=== PATIENT | female | born 1995 | race Asian ===

== ENCOUNTER 2020-02-09 09:09 | Emergency (ER) | payer MEDICAID, OTHER ==
[~2020-02-09] VITALS: Ht 152.4 cm; Wt 45.5 kg
[2020-02-09] MEDS ORDERED: ACETAMINOPHEN 500 MG TABLET PO ONE (10:30)
[2020-02-09 11:40] VITALS: BP 128/71
[2020-02-09 11:49] LABS: COVID AG,FIA SOURCE NASOPHARYNGEAL
== END 2020-02-09 12:10 | disposition home or self-care (01) ==
LOC: EDUNIT# 09:09 → EMS 09:13
DX: U07.1 COVID-19 (principal)
CPT/HCPCS: 71045; 87426; 99284; C9803; U0003

== ENCOUNTER 2020-02-17 12:15 | Emergency (ER) | payer MEDICAID ==
[~2020-02-17] VITALS: Ht 160 cm; Wt 52.3 kg
[2020-02-17] MEDS ORDERED: SODIUM CHLORIDE 0.9% 1,000 ML ONE (13:50)
[2020-02-17] MEDS: SODIUM CHLORIDE 0.9% 1,000 ML IV ONE (13:51)
[2020-02-17] MEDS: KETOROLAC TROMETHAMINE 30 MG/ML VIAL IVP ONE (13:52)
[2020-02-17 14:11] LABS: APPEARANCE,URINE CLEAR (CLEAR); BILIRUBIN,URINE NEGATIVE (NEGATIVE); GLUCOSE, URINE (UA) NEGATIVE (NEGATIVE); KETONES,URINE 40 mg/dL (NEGATIVE); LEUKOCYTE ESTERASE ,URINE NEGATIVE (NEGATIVE); NITRATE,URINE NEGATIVE (NEGATIVE); OCCULT BLOOD,URINE MODERATE (NEGATIVE); PROTEIN,URINE TRACE (NEGATIVE)
[2020-02-17 14:25] LABS: BASOPHILS % (AUTO) 0.2 % (0.0-2.0); EOSINOPHILS % (AUTO) 0.1 % (1.0-6.0); HEMATOCRIT 37.3 % (36-46); HEMOGLOBIN 12.9 g/dL (12.0-16.0); LYMPHOCYTES # (AUTO) 0.9 K/uL (1.0-4.8); LYMPHOCYTES % (AUTO) 10.6 % (22.0-44.0); MEAN CORPUSCULAR HEMOGLOBIN 29.2 pg (26.0-34.0); MEAN CORPUSCULAR HGB CONC 34.7 G/dL (31.0-37.0); MEAN CORPUSCULAR VOLUME 84 fL (80-100); MONOCYTES # (AUTO) 0.7 K/uL (0.1-1.0); MONOCYTES % (AUTO) 7.7 % (2.0-9.0); NEUTROPHILS % (AUTO) 81.4 % (40.0-70.0); PLATELET COUNT (AUTO) 253 K/uL (150-450); RED BLOOD CELL COUNT(AUTO) 4.43 MIL/uL (4.00-5.20); RED CELL DISTRIBUTION WIDTH 12.6 % (11.5-14.5)
[2020-02-17 14:26] LABS: BACTERIA,URINE None Seen /HPF (None Seen); SQUAMOUS EPITHELIAL CELL,UR Moderate /LPF (None Seen); WBC,URINE None Seen /HPF (0-5)
[2020-02-17 14:27] LABS: ANION GAP 11 mmol/L (8-16); CALCIUM, TOTAL 8.9 mg/dL (8.8-10.5); CARBON DIOXIDE 25 mmol/L (22-29); CHLORIDE 101 mmol/L (98-107); GLOMERULAR FILTR. RATE CALC > 60 mL/min (>60); GLUCOSE,RANDOM 91 mg/dL (70-110); POTASSIUM 3.5 mmol/L (3.5-5.1); SODIUM SERUM 137 mmol/L (136-145); UREA NITROGEN, BLOOD 8 mg/dL (7-18)
[2020-02-17 14:33] LABS: ALANINE AMINOTRANSFERASE 16 U/L (12-78); ALBUMIN 4.3 g/dL (3.4-5.0); ALKALINE PHOSPHATASE 63 U/L (46-116); ASPARTATE AMINOTRANSFERASE 15 U/L (15-37); BILIRUBIN,TOTAL 0.9 mg/dL (0.1-1.0); TOTAL PROTEIN, SERUM 8.8 g/dL (6.4-8.2)
[2020-02-17 17:06] VITALS: BP 125/72
== END 2020-02-17 17:08 | disposition home or self-care (01) ==
LOC: EMS 12:16
DX: R10.31 Right lower quadrant pain (principal); R30.0 Dysuria; R31.9 Hematuria, unspecified
CPT/HCPCS: 36415; 74176; 80053; 81001; 81025; 85025; 96361; 96374; 99284; J1885; J7030

== ENCOUNTER 2020-03-19 17:14 | Emergency (ER) | payer MEDICAID ==
[~2020-03-19] VITALS: Ht 162.6 cm; Wt 54.5 kg
[2020-03-19 17:16] VITALS: BP 136/96
== END 2020-03-19 17:44 | disposition home or self-care (01) ==
LOC: EMS 17:14
DX: Z02.89 Encounter for other administrative examinations (principal); Z86.16 Personal history of COVID-19
CPT/HCPCS: Z7502